=== PATIENT | male | born 1990 | race Caucasian/White ===

== ENCOUNTER 2017-01-13 12:37 | Emergency (ER) | payer SELFPAY ==
[~2017-01-13] VITALS: Ht 177.8 cm; Wt 117.9 kg
[~2017-01-13 12:37] MED LIST: LIDOCAINE/EPI 2% 1:100,00 (XYLOCAINE) 20 ML VIAL ONE
--- NOTE | 2017-01-13 13:12 | ED Upper Extremity ---
General Chief Complaint: Laceration Stated Complaint: LT HAND LAC Nursing Triage Note: PT WAS CUTTING TILE AND CUT HIS LT FOREARM WITH A NEEDLE GRADER. 5CM X 1.5CM LAC, BLEEDING ON ARRIVAL CONTROLED BY PT WITH PRESSURE. Nursing Sepsis Screen: No Definite Risk Source: patient Exam Limitations: no limitations History of Present Illness Time seen by provider: 12:52 Initial Comments Patient presents to ER by private conveyance for a workplace injury that occurred just prior to arrival. He was using a angle corn grinder to cut tile and slipped and ran angle corn grinder against the dorsum of his distal left forearm. He was holding a towel for compression and holding the dressing and arm above the level of his heart when he arrived. He denies shortness of breath or chest pain. He says he is about 5 or 6 years out on his last eat at. He says he has no chest pain or shortness of breath or nausea. He's had nothing for pain at this time. He denies any alcohol. Allergies and Home Medications Allergies Coded Allergies: No Known Drug Allergies (Unverified , 01/13/17) Home Medications No Active Prescriptions or Reported Meds Constitutional: No chills, No diaphoresis Respiratory: No cough, No short of breath Cardiovascular: No chest pain, No palpitations Gastrointestinal: No abdominal pain, No constipation, No nausea Genitourinary: No discharge, No dysuria Musculoskeletal: No back pain, No joint pain Skin: see HPI Psychiatric/Neurological: Denies Headache, Denies Numbness, Denies Paresthesia Past [id number] Hx Patient Social History Alcohol Use: Occasionally Uses Alcohol Beverage of Choice: Beer Recreational Drug Use: Yes (THC) Smoking Status: Current Everyday Smoker Type Used: Cigarettes Recent Foreign Travel: No Contact w/Someone Who Travel: No Recent Infectious Disease Expo: No Physical Exam Vital Signs Vital Sign - Last 12Hours 01/13/17 12:40 Temp 98.2 Pulse 93 Resp 20 B/P (MAP) 146/111 Pulse Ox 98 O2 Delivery Room Air Capillary Refill : Less Than 3 Seconds General Appearance: WD/WN, no apparent distress Neck: non-tender, normal inspection Cardiovascular: normal peripheral pulses, regular rate, rhythm, other (distal radial ulnar pulses present.) Respiratory: chest non-tender, lungs clear Elbow/Forearm: normal inspection, non-tender, no evidence of injury, normal ROM Wrist: Yes normal ROM (left forearm there is a 5 cm curvilinear laceration down to the aponeurosis of the extensor tendon sheath without obvious foreign body gaping about 1.5 cm at the widest.) Hand: normal inspection, non-tender, no evidence of injury, normal ROM Neurologic/Tendon: normal sensation, normal motor functions, normal tendon functions, responds to pain Neurologic/Psychiatric: no motor/sensory deficits, alert, oriented x 3 Skin: normal color, warm/dry, other (laceration left forearm dorsum) Laceration Repair : Wound Location: Upper Extremities (distal left forearm dorsum) Wound Length (cm): 5 Wound's Depth, Shape: linear, sub Q Wound Explored: clean Irrigated w/ Saline (ccs): 250 Betadine Prep?: Yes (and chlorhexidine soap water) Anesthesia: Lidocaine w/ Epi (2% lidocaine) Volume Anesthetic (ccs): 10 Wound Debrided: minimal Suture: Ethlion Suture Size: 4-0 Number of Sutures: 9 Layer Closure?: 1 Progress Wound was immediately irrigated with chlorhexidine soap water and then iodine. The wound was then infiltrated around the edges and a ring fashion with the 2% lidocaine and epinephrine. Hemostasis was assured and the patient was numb so sutures from 4-0 Ethilon were applied in a simple interrupted fashion. The patient tolerated this procedure very well. Progress/Results/Core Measures Results/Orders My Orders Orders - WALES[facility] DUNLAP Lidocaine/Epi 2% 1:100,000 (Xylocaine/Ep (01/13/17 12:35) Dipht,Pertuss(Acell),Tet Adult (Boostrix (01/13/17 13:15) Medications Given in ED Current Medications Medications Dose Ordered Sig/Sharon Route Start Time Stop Time Status Last Admin Dose Admin Lidocaine/ Epinephrine 20 ml STK-MED ONCE .ROUTE 01/13/17 12:35 01/13/17 12:43 DC 01/13/17 12:47 20 ML Vital Signs/I&O Vital Sign - Last 12Hours 01/13/17 12:40 Temp 98.2 Pulse 93 Resp 20 B/P (MAP) 146/111 Pulse Ox 98 O2 Delivery Room Air Blood Pressure Mean: 123 Departure Impression Impression: Primary Impression: Laceration Disposition: 01 HOME, SELF-CARE Condition: Stable Departure-Patient Inst. Decision time for Depature: 13:25 Referrals: NO,LOCAL PHYSICIAN (PCP/Family) Primary Care Physician Patient Instructions: Laceration Repair With Stitches (DC) Add. Discharge Instructions: Please keep the wound clean and dry with a dressing. You may apply a thin layer of Vaseline as often as necessary to keep the skin edges moist. Do not submerge the wound under water and released until 2 days. Take the antibiotics as directed 1 tablet twice a day for 3 days. Return to the ER in 7-10 days to have the stitches removed and the wound examined. You may also do this at your own private doctor if you choose. If you have yellow or white purulent drainage (pus), fever, chills, nausea or there is increasing redness or swelling at the site does not improve in the next few days he should return to the ER or your primary doctor. For the swelling and pain you can use Tylenol and ibuprofen as well as keep the extremity elevated above the level of your heart at all times and apply an ice pack for up to 20 minutes every 4-6 hours as needed for swelling. If this does not control your pain you may also lightly wrapped a Spencer bandage around the wound to apply some compression or use the hydrocodone that is been prescribed for you. Hydrocodone will cause drowsiness as well as constipation and I recommend you be on MiraLAX every day that you're using hydrocodone. Do not drive or drink alcohol while under the influence of opiates. All discharge instructions reviewed with patient and/or family. Voiced understanding. Scripts Hydrocodone/Acetaminophen (Hydrocodon -Acetaminophen 5-325) 1 Each Tablet 1 EACH PO Q6H Y for PAIN, #14 TAB 0 Refills Prov: WALESKA DUNLAP 01/13/17 Sulfamethoxazole/Trimethoprim (Bactrim Ds Tablet) 1 Each Tablet 1 EACH PO BID for 3 Days, #6 TAB 0 Refills Prov: WALESKA DUNLAP 01/13/17 Work/School Note: Work Release Form Date Seen in the Emergency Department: Jan 13, 2017 Return to Work: Jan 15, 2017 Restrictions: No Restrictions WALESKA DUNLAP Jan 13, 2017 13:12
[2017-01-13] MEDS ORDERED: TETANUS,DIPTH,PERTUSS P/F (BOOSTRIX) 0.5 ML VIAL IM ONE (13:15)
[2017-01-13] MEDS ORDERED: SULF1TAB35 PO (13:25)
[2017-01-13] MEDS ORDERED: HYDR-3812 PO (13:25)
[2017-01-13 13:38] VITALS: BP 150/98
== END 2017-01-13 13:38 | disposition home or self-care (01) ==
LOC: ER 12:40
DX: S51.812A Laceration without foreign body of left forearm, initial encounter (principal); F17.210 Nicotine dependence, cigarettes, uncomplicated; F12.10 Cannabis abuse, uncomplicated; W29.8XXA Contact with other powered hand tools and household machinery, initial encounter; Y92.69 Other specified industrial and construction area as the place of occurrence of the external cause
CPT/HCPCS: 12032; 90471; 90715

== ENCOUNTER 2017-01-21 14:17 | Emergency (ER) | payer SELFPAY ==
[~2017-01-21] VITALS: Ht 180.3 cm; Wt 117.9 kg
[~2017-01-21 14:17] MED LIST changes: +HYDR-3812 PO; -LIDOCAINE/EPI 2% 1:100,00 (XYLOCAINE) 20 ML VIAL ONE; +SULF1TAB35 PO
[2017-01-21 14:28] VITALS: BP 147/98
== END 2017-01-21 14:31 | disposition other institution (70) ==
LOC: EDUNIT# 14:17 → ER 14:19
DX: X58.XXXD Exposure to other specified factors, subsequent encounter; F17.200 Nicotine dependence, unspecified, uncomplicated; S51.812D Laceration without foreign body of left forearm, subsequent encounter